=== PATIENT | female | born 1965 | race Caucasian/White ===

== ENCOUNTER 2016-11-04 08:58 | Inpatient (IN) | payer OTHER, BC ==
[~2016-11-04 08:58] MED LIST: ACETAMINOPHEN1 EAC4 PO; ADVIL200 M1 PO; ALEVE220 M3 PO; AMOXICILLIN500 M1 PO; FIBER PO; MIRALAX17 G2 PO; NEURONTIN100 M1 PO; NEURONTIN300 M1 PO; NORCO 5-325 TA1 EACH PO; TYLENOL PM EX-1 EAC4 PO; VALIUM5 M1 PO; [UNRECOGNIZED DRUG - OTHER] TP
[2016-11-04 09:27] LABS: INR 0.9 INR (0.9-1.1); PROTHROMBIN TIME 10.2 SECONDS (9.0-13.6)
[2016-11-04 09:34] LABS: BASO % 2.2 % (0-2); BASO ABSOLUTE COUNT 0.1 tho/cmm (0.0-0.2); EOS % 5.1 % (0-7); EOSINOPHIL ABSOLUTE COUNT 0.2 tho/cmm (0.0-0.7); HCT-HEMATOCRIT 39.7 % (34.0-49.0); HGB-HEMOGLOBIN 12.8 gm/dl (12.0-15.5); LYMPH % 32.4 % (20-45); LYMPH ABSOLUTE COUNT 1.5 tho/cmm (0.8-4.5); MCH (MEAN CORPUSCULAR HGB) 30.5 pg (28.0-32.0); MCHC MEAN CORPUSCULAR HGB CONC 32.2 % (32.0-36.0); MCV (MEAN CELL VOLUME) 94.5 fl (82.0-96.0); MEAN PLATELET VOLUME 10.9 cmc (9.4-12.4); MONO % 7.3 % (0-12); MONOCYTE ABSOLUTE COUNT 0.3 tho/cmm (0.0-1.2); NEUTROPHIL ABSOLUTE COUNT 2.4 tho/cmm (1.6-8.0); NEUTROPHIL-AUTOMATED 2.4 tho/cmm (1.6-8.0); PLATELET COUNT 229 tho/cmm (150-450); WHITE BLOOD COUNT 4.5 tho/cmm (4.0-10.0)
[2016-11-04 09:38] LABS: ANION GAP 12 mmol/L (0-20); BLOOD UREA NITROGEN 17 mg/dl (6-24); CALCIUM 9.6 mg/dl (8.5-10.5); CARBON DIOXIDE-VENOUS 27 mmol/L (22-32); CHLORIDE 107 mmol/l (96-110); CREATININE 0.76 mg/dl (0.50-1.10); GLUCOSE 98 mg/dL (70-110); POTASSIUM 4.6 mmol/L (3.7-5.1); SODIUM 141 mmol/L (135-145); eGFR VALUE FOR BLACK >90 mL/Min
--- NOTE | 2016-11-04 21:13 | NUR ---
VN ROUNDING NOTE-PATIENT BUSY WITH BEDSIDE NURSE. WILL TRY AGAIN LATER
--- NOTE | 2016-11-05 11:23 | NUR ---
virtual care note: visited with the pt at this time. states she just got back from her 2nd walk of the morning. states that she has not passed gas or had bm since friday afternoon-this is worrying her. encouraged her to keep taking fluids and walking. she refuses any sort of stool softener-though i did suggest this as an option as well. also refuses prune juice. states she has some concerns regarding some news she recieved from the physician this morning about her likelihood of having more hernias. gave her some suggestions as well as some TLC. she is very appropriate during our discussion and is open to ideas and suggestions, for the most part. waiting for the surgeon to round so she can have her abdominal dressing changed. will continue to monitor. electronic chart reviewed.
[2016-11-07] MEDS ORDERED: NORCO 5-325 TA1 EACH PO (11:46)
--- NOTE | 2016-11-07 12:19 | NUR ---
VIRTUAL CARE NOTE: PT RESTING ON BED, STATES FEELING OK STILL FEEL CONSTIPATED YET AFTER HAVING AN ENEMA, COLCE, MIRALAX, AND METAMUCIL THIS AM. DISCHARGE PLAN DISCUSSED WITH PT, PLAN OF CARE DISCUSSED WITH PRIMARY NURSE, WILL UPDATE DR.BOB CLIFFORD OF PT'S STATUS.
[2016-11-08 10:19] LABS: ANION GAP 11 mmol/L (0-20); BLOOD UREA NITROGEN 8 mg/dl (6-24); CALCIUM 8.9 mg/dl (8.5-10.5); CARBON DIOXIDE-VENOUS 29 mmol/L (22-32); CHLORIDE 102 mmol/l (96-110); CREATININE 0.64 mg/dl (0.50-1.10); GLUCOSE 102 mg/dL (70-110); POTASSIUM 4.1 mmol/L (3.7-5.1); SODIUM 138 mmol/L (135-145); eGFR VALUE FOR BLACK >90 mL/Min
--- NOTE | 2016-11-08 15:32 | NUR ---
virtual care note: checked in on pt at this time. she is resting in bed. states she feels she may have a bm at some point this afternoon. has been walking, using her IS, and taking good deep breaths. also states that she has emptied her SHY drain independently and marking the output totals on a graphics sheet the last three times it has been emptied, and that she is comfortable with doing so. has no further needs. d/w pt her care plan/dc plan. will continue to monitor. electronic chart reviewed.
--- NOTE | 2016-11-08 19:22 | NUR ---
VIRTUAL CARE NOTE: PT. IN BED. STATES HAD WALKED PRIOR X4. AND HAD SMALL BM FROM PRIOR SUPPOSITIORY. ENCOURAGED AMBULATION AND TO DRINK WATER AND TO CONTINUE TO USE I.S. HAD BEEN. INSTRUCTED TO CALL FOR FURTHER NEEDS. STATES VERBAL AGREEMENT.
--- NOTE | 2016-11-09 12:23 | NUR ---
VIRTUAL CARE NOTE: PT IS GETTING READY TO GO HOME. DISCHARGE INSTRUCTIONS GIVEN TO PT, ALL QUESTIONS ANSWERED. SHY DRAIN TEACHING REINFORCED, PT STATES SHE HAS BEEN DOING IT FOR LAST 2 DAYS. PT DENIES ANY FURTHER QUESTIONS OR CONCENRS. INFORMED FLOOR NURSE DISCHARGE TEACHING ALL DONE.
== END 2016-11-09 13:00 | DRG 355 ==
LOC: SHSB 08:58 → ORW 11:48 → PACU 14:37 → 5WD 16:30
PROVIDERS: ADMIT Surgery Vascular Surgery
PROC: 0WUF0JZ Supplement Abdominal Wall with Synthetic Substitute, Open Approach (ICD-10-PCS; principal; 2016-11-04)
DX: K43.2 Incisional hernia without obstruction or gangrene (principal); Z98.1 Arthrodesis status
CPT/HCPCS: C1781; J0690; J2250; J2405; J3010